=== PATIENT | male | born 1970 | race Two or more races ===

== ENCOUNTER 2019-09-30 09:11 | Emergency (ER) | payer OTHER ==
[~2019-09-30] VITALS: Ht 160 cm; Wt 86.2 kg
[~2019-09-30 09:11] MED LIST: [UNRECOGNIZED DRUG - REMARK]
== END 2019-09-30 11:17 | disposition home or self-care (01) ==
LOC: ER
DX: M79.601 Pain in right arm (principal)

== ENCOUNTER 2021-07-02 10:18 | Emergency (ER) | payer OTHER ==
[~2021-07-02] VITALS: Ht 160 cm; Wt 108.9 kg
== END 2021-07-02 12:42 | disposition home or self-care (01) ==
LOC: ER 10:18
DX: S93.491A Sprain of other ligament of right ankle, initial encounter (principal); X58.XXXA Exposure to other specified factors, initial encounter; Y93.89 Activity, other specified; Y92.89 Other specified places as the place of occurrence of the external cause; Y99.8 Other external cause status

== ENCOUNTER 2021-07-11 08:00 | Outpatient (CLI) | payer OTHER | END 2021-07-11 08:30 | disposition home or self-care (01) | LOC: PPH VACUNA 08:00 | PROVIDERS: ATTEND Emergency Medicine Pediatric Emergency Medicine | DX: Z23 Encounter for immunization (principal) ==

== ENCOUNTER 2021-10-24 08:00 | Outpatient (CLI) | payer OTHER | END 2021-10-24 08:30 | disposition home or self-care (01) | LOC: PPH VACUNA 08:00 | PROVIDERS: ATTEND Emergency Medicine Pediatric Emergency Medicine | DX: Z23 Encounter for immunization (principal) ==

== ENCOUNTER 2022-02-17 07:00 | Emergency (ER) | payer OTHER ==
[~2022-02-17] VITALS: Ht 160 cm; Wt 104.3 kg
== END 2022-02-17 08:43 | disposition home or self-care (01) ==
LOC: ER 07:00
DX: M77.31 Calcaneal spur, right foot (principal); M77.32 Calcaneal spur, left foot

== ENCOUNTER 2022-06-27 10:10 | Outpatient (CLI) | payer OTHER | END 2022-06-27 10:15 | disposition home or self-care (01) | LOC: PPH VACUNA 10:10 | PROVIDERS: ATTEND Emergency Medicine Pediatric Emergency Medicine | DX: Z23 Encounter for immunization (principal) ==

== ENCOUNTER → 2022-09-13 | Outpatient (CLI) | payer OTHER | END | disposition home or self-care (01) | LOC: RAD 14:29 | DX: J10.08 Influenza due to other identified influenza virus with other specified pneumonia (principal) ==

== ENCOUNTER 2023-06-13 | Outpatient (CLI) | payer OTHER | END 2023-06-13 00:15 | disposition home or self-care (01) | LOC: PPH VACUNA | PROVIDERS: ATTEND Emergency Medicine Pediatric Emergency Medicine | DX: Z23 Encounter for immunization (principal) ==

== ENCOUNTER 2023-09-11 09:45 | Outpatient (CLI) | payer OTHER | END 2023-09-11 09:50 | disposition home or self-care (01) | LOC: RAD 09:45 | PROVIDERS: ATTEND General Practice | DX: J10.08 Influenza due to other identified influenza virus with other specified pneumonia (principal) ==

== ENCOUNTER 2024-06-03 13:22 | Outpatient (CLI) | payer OTHER | END 2024-06-03 13:28 | disposition home or self-care (01) | LOC: LAB 13:22 | PROVIDERS: ATTEND Preventive Medicine Occupational Medicine | DX: A49.1 Streptococcal infection, unspecified site (principal); A02.9 Salmonella infection, unspecified; K62.89 Other specified diseases of anus and rectum ==

== ENCOUNTER 2024-06-21 10:44 | Emergency (ER) | payer OTHER ==
[~2024-06-21] VITALS: Ht 162.6 cm; Wt 108.9 kg
[2024-06-21] MEDS ORDERED: MUPIROCIN 15 GM OINT..GM TUBE TOP ONE (11:45)
== END 2024-06-21 14:16 | disposition home or self-care (01) ==
LOC: ER 10:46
DX: R21 Rash and other nonspecific skin eruption (principal); T30.4 Corrosion of unspecified body region, unspecified degree; I10 Essential (primary) hypertension

== ENCOUNTER 2024-07-01 14:03 | Emergency (ER) | payer OTHER ==
[~2024-07-01] VITALS: Ht 162.6 cm; Wt 108.9 kg
[2024-07-01 14:11] VITALS: BP 131/88; O2SAT 95
[2024-07-01] MEDS ORDERED: KETOROLAC TROMETHAMINE 60 MG VIAL IM ONE ×2 (16:30→16:47)
[2024-07-01] MEDS ORDERED: TRIAMCINOLONE ACETONIDE 40 MG/ML VIAL IM ONE (16:30)
[2024-07-01] MEDS ORDERED: TRIAMCINOLONE ACETONIDE 40 MG/ML VIAL ONE (16:47)
[2024-07-01] MEDS ORDERED: DICLOFENAC SODI75 MG PO (17:47)
== END 2024-07-01 18:16 | disposition home or self-care (01) ==
LOC: ER 14:05
DX: M79.605 Pain in left leg (principal); M79.604 Pain in right leg; M77.32 Calcaneal spur, left foot; M77.31 Calcaneal spur, right foot

== ENCOUNTER → 2024-08-11 09:53 | Outpatient (CLI) | payer OTHER ==
[~2024-08-11 09:53] MED LIST changes: +DICLOFENAC SODI75 MG PO
[2024-08-11 10:26] LABS: URINE APPEARANCE Clear; URINE BILIRRUBIN Negative (NEGATIVE); URINE BLOOD Negative; URINE COLOR Yellow; URINE GLUCOSE Negative (NEGATIVE); URINE KETONE Negative (NEGATIVE); URINE LEUKOCYTE Negative; URINE NITRATE Negative; URINE PROTEIN Trace (NEGATIVE); URINE UROBILINOGEN 0.2 E.U./dl
[2024-08-11 10:28] LABS: URINE BACTERIA 6.2 uL (0.0-1933); URINE WBC 2.6 uL (0.0-23.2)
[2024-08-11 10:32] LABS: URINE EPITHELIAL CELLS 0.7 uL (0.0-38.8); URINE RBC 0.9 uL (0.0-20.8)
[2024-08-11 10:44] LABS: HEMATOCRIT 43.6 % (39.0-48.0); HEMOGLOBIN 14.2 g/dL (13-16.00); MEAN CELL VOLUME 81.7 fL (80.0-100.00); MEAN CORPUSCULAR HEMOGLOBIN 26.6 pg (27.00-32.0); MEAN CORPUSCULAR HGB CONC 32.6 g/dl (32.0-36.0); PLATELET COUNT 247 K/uL (150-450); RED BLOOD COUNT 5.34 M/uL (4.00-6.00); RED CELL DISTRIBUTION WIDTH 15.5 % (11.5-14.5)
[2024-08-11 11:36] LABS: ALBUMIN 3.6 gm/dL (3.4-5.0); BILIRUBIN TOTAL 0.57 mg/dL (0.3-1.2); CALCIUM 8.5 mg/dL (8.5-10.1); CHOL HDL RATIO 3.6 (0-5.0); CREATININE SERUM 0.74 mg/dL (0.70-1.30); GFR 111.51; POTASSIUM 4.33 mEq/L (3.5-5.1); PROSTATIC SPECIFIC ANTIGEN 1.72 NG/ML (0.010-4.00); TOTAL PROTEIN 7.6 gm/dL (6.4-8.2)
== END | disposition home or self-care (01) ==
LOC: LAB 09:53
PROVIDERS: ATTEND General Practice
DX: D64.9 Anemia, unspecified (principal); R30.0 Dysuria; R42 Dizziness and giddiness; E78.5 Hyperlipidemia, unspecified; Z12.11 Encounter for screening for malignant neoplasm of colon; N40.0 Benign prostatic hyperplasia without lower urinary tract symptoms

== ENCOUNTER 2024-08-14 09:42 | Outpatient (CLI) | payer OTHER ==
[2024-08-14 10:32] LABS: ob NEGATIVE (NEGATIVE)
== END 2024-08-14 10:14 | disposition home or self-care (01) ==
LOC: LAB 09:42
PROVIDERS: ATTEND General Practice
DX: D64.9 Anemia, unspecified (principal); R30.0 Dysuria; R42 Dizziness and giddiness; E78.5 Hyperlipidemia, unspecified; Z12.11 Encounter for screening for malignant neoplasm of colon; N40.0 Benign prostatic hyperplasia without lower urinary tract symptoms

== ENCOUNTER 2024-08-28 10:39 | Outpatient (CLI) | payer OTHER | END 2024-08-28 10:46 | disposition home or self-care (01) | LOC: RAD 10:39 | DX: J18.9 Pneumonia, unspecified organism (principal) ==

== ENCOUNTER 2024-09-04 11:15 | Outpatient (CLI) | payer OTHER | END 2024-09-04 11:25 | disposition home or self-care (01) | LOC: PPH VACUNA 11:15 | PROVIDERS: ATTEND Emergency Medicine Pediatric Emergency Medicine | DX: Z23 Encounter for immunization (principal) ==

== ENCOUNTER 2024-11-15 13:21 | Emergency (ER) | payer OTHER ==
[~2024-11-15] VITALS: Ht 160 cm; Wt 109.8 kg
[2024-11-15] MEDS ORDERED: MELOXICAM15 MG (14:19)
[2024-11-15] MEDS ORDERED: NIFEDIPINE 10 MG CAPSULE PO ONE ×2 (15:15→15:25)
[2024-11-15] MEDS ORDERED: TRAMADOL HCL 50 MG TABLET PO ONE (15:30)
[2024-11-15] MEDS ORDERED: LOSARTAN POTASS25 MG PO (15:41)
== END 2024-11-15 18:10 | disposition home or self-care (01) ==
LOC: ER 13:23
DX: M25.572 Pain in left ankle and joints of left foot (principal); I10 Essential (primary) hypertension

== ENCOUNTER 2024-11-17 09:29 | Outpatient (CLI) | payer OTHER ==
[~2024-11-17 09:29] MED LIST changes: +LOSARTAN POTASS25 MG PO; +MELOXICAM15 MG
== END 2024-11-17 09:32 | disposition home or self-care (01) ==
LOC: RAD 09:29
DX: R05.9 Cough, unspecified (principal); Z00.00 Encounter for general adult medical examination without abnormal findings

== ENCOUNTER 2024-12-14 09:05 | Inpatient (IN) | payer OTHER ==
[~2024-12-14] VITALS: Ht 162.6 cm; Wt 179.6 kg
--- NOTE | 2024-12-14 09:16 | NUR ---
PACIENTE ALERTA Y ORIENTADO X3 REFIERE ESTAR EN [place] AREA TRABAJO Y QUEDARSE SIN RESPIRARON. SE REALIZA EKG S AVILA PRESENTA A DR. PATRICK. SE MIDE S/V Y SE UBICA.
[2024-12-14] MEDS ORDERED: ONDANSETRON HCL 2 MG/ML VIAL IV ONE (09:45)
[2024-12-14] MEDS ORDERED: FAMOTIDINE/PF 20 MG/2 ML VIAL IV PUSH ONE (10:00)
[2024-12-14] MEDS ORDERED: 0.9 % SODIUM CHLORIDE 1,000 ML IV SCH ×2 (10:00→19:00)
--- NOTE | 2024-12-14 10:26 | NUR ---
SE EDUCA A PACIENTE SOBRE TRATAMIENTO MEDICO EL CUAL REFIERE ENTENDER SE REALIZA [facility] Y [facility] ORDEN MEDICA.
[2024-12-14 10:37] LABS: HEMATOCRIT 45.7 % (39.0-48.0); HEMOGLOBIN 14.2 g/dL (13-16.00); MEAN CELL VOLUME 83.9 fL (80.0-100.00); MEAN CORPUSCULAR HEMOGLOBIN 26.2 pg (27.00-32.0); MEAN CORPUSCULAR HGB CONC 31.2 g/dl (32.0-36.0); PLATELET COUNT 246 K/uL (150-450); RED BLOOD COUNT 5.44 M/uL (4.00-6.00); RED CELL DISTRIBUTION WIDTH 16.1 % (11.5-14.5)
[2024-12-14 11:00] LABS: PH,URINE 6.5 (5.0-8.0); URINE APPEARANCE Clear; URINE BILIRRUBIN Negative (NEGATIVE); URINE BLOOD Negative; URINE COLOR Yellow; URINE GLUCOSE Negative (NEGATIVE); URINE KETONE Negative (NEGATIVE); URINE LEUKOCYTE Negative; URINE NITRATE Negative; URINE PROTEIN Negative (NEGATIVE); URINE UROBILINOGEN 0.2 E.U./dl
[2024-12-14 11:01] LABS: URINE EPITHELIAL CELLS 1.4 uL (0.0-38.8); URINE RBC 2.3 uL (0.0-20.8); URINE WBC 3.4 uL (0.0-23.2)
[2024-12-14 11:04] LABS: URINE CAST 0.29 uL (0.0-1.40)
[2024-12-14 11:36] LABS: ALBUMIN 3.6 gm/dL (3.4-5.0); BILIRUBIN TOTAL 0.65 mg/dL (0.3-1.2); CALCIUM 8.9 mg/dL (8.5-10.1); CREATININE SERUM 0.96 mg/dL (0.70-1.30); GFR 82.25; GLOBULINA 4.1 G/DL (2.4-3.5); POTASSIUM 4.27 mEq/L (3.5-5.1); TOTAL PROTEIN 7.7 gm/dL (6.4-8.2)
[2024-12-14] MEDS ORDERED: METRONIDAZOLE/SODIUM CHLORIDE 500 MG/100 ML PIGGYBACK IV ONE (13:15)
[2024-12-14] MEDS ORDERED: CIPROFLOXACIN IN 5 % DEXTROSE 200 ML IV SCH (18:57)
[2024-12-14] MEDS ORDERED: MORPHINE SULFATE 4 MG/ML CARTRIDGE IV PRN (19:00)
[2024-12-14] MEDS ORDERED: ACETAMINOPHEN 500 MG GEL..CAP PO PRN (19:00)
[2024-12-14] MEDS ORDERED: ONDANSETRON HCL 4 MG in 0.9 % SODIUM CHLORIDE 50 ML IV PRN (19:00)
[2024-12-14 21:18] LABS: INR 1.31; PARTIAL THROMBOPLASTIN TIME 29.2 SECONDS (22.0-34.0)
[2024-12-14 21:25] LABS: PH,URINE 6.5 (5.0-8.0); URINE APPEARANCE Clear; URINE BILIRRUBIN Negative (NEGATIVE); URINE BLOOD Negative; URINE COLOR Yellow; URINE GLUCOSE Negative (NEGATIVE); URINE KETONE Negative (NEGATIVE); URINE LEUKOCYTE Negative; URINE NITRATE Negative; URINE PROTEIN Negative (NEGATIVE); URINE UROBILINOGEN 0.2 E.U./dl
[2024-12-14 21:27] LABS: URINE BACTERIA 7.3 uL (0.0-1933); URINE WBC 2.3 uL (0.0-23.2)
[2024-12-14 21:45] LABS: URINE CAST 0.14 uL (0.0-1.40); URINE EPITHELIAL CELLS 0.9 uL (0.0-38.8); URINE RBC 0.8 uL (0.0-20.8)
[2024-12-14 22:04] VITALS: BP 131/85; O2SAT 97
[2024-12-15] MEDS ORDERED: METRONIDAZOLE/SODIUM CHLORIDE 100 ML IV SCH (01:00)
[2024-12-15 01:14] VITALS: BP 128/86; O2SAT 96
[2024-12-15 08:00] VITALS: BP 147/96; O2SAT 99
[2024-12-15] MEDS ORDERED: LOSARTAN POTASSIUM 25 MG TABLET PO SCH (09:00)
[2024-12-15] MEDS ORDERED: ENOXAPARIN SODIUM 40 MG/0.4 ML SYRINGE SUBCUTANEO SCH (09:00)
[2024-12-15] MEDS ORDERED: FAMOTIDINE/PF 20 MG in 0.9 % SODIUM CHLORIDE 8 ML IV PUSH SCH (09:00)
[2024-12-15 17:23] VITALS: BP 160/85; O2SAT 97
[2024-12-16 02:08] VITALS: BP 125/77; O2SAT 95
[2024-12-16 06:15] LABS: HEMATOCRIT 42.4 % (39.0-48.0); HEMOGLOBIN 13.7 g/dL (13-16.00); MEAN CELL VOLUME 83.6 fL (80.0-100.00); MEAN CORPUSCULAR HGB CONC 32.2 g/dl (32.0-36.0); PLATELET COUNT 228 K/uL (150-450); RED BLOOD COUNT 5.07 M/uL (4.00-6.00)
[2024-12-16 07:24] LABS: BILIRUBIN TOTAL 0.37 mg/dL (0.3-1.2); CALCIUM 8.3 mg/dL (8.5-10.1); CREATININE SERUM 0.81 mg/dL (0.70-1.30); GFR 100.07; GLOBULINA 3.7 G/DL (2.4-3.5); MAGNESIUM 2.5 mg/dL (1.8-2.4); PHOSPHOROUS 2.6 mg/dL (2.5-4.9); POTASSIUM 4.61 mEq/L (3.5-5.1); TOTAL PROTEIN 6.7 gm/dL (6.4-8.2)
[2024-12-16 07:28] LABS: C-REACTIVE PROTEIN 5.16 MG/DL (0.00-0.29)
[2024-12-16 08:51] VITALS: BP 147/76; O2SAT 99
== END 2024-12-16 15:19 | disposition home or self-care (01) | DRG 392 ==
LOC: ER 09:05 → MEDI 19:28
PROVIDERS: Emergency Medicine; General Practice; Internal Medicine Infectious Disease; ADMIT Internal Medicine; ATTEND Internal Medicine
PROC: BW21YZZ Computerized Tomography (CT Scan) of Abdomen and Pelvis using Other Contrast (ICD-10-PCS; principal; 2024-12-14)
DX: A09 Infectious gastroenteritis and colitis, unspecified (principal); A05.9 Bacterial foodborne intoxication, unspecified; I10 Essential (primary) hypertension

== ENCOUNTER 2025-05-18 13:39 | Outpatient (CLI) | payer OTHER | END 2025-05-18 13:48 | disposition home or self-care (01) | LOC: SONOGRAMA 13:39 | PROVIDERS: ATTEND Physical Medicine & Rehabilitation | DX: M65.872 Other synovitis and tenosynovitis, left ankle and foot (principal); M72.2 Plantar fascial fibromatosis ==

== ENCOUNTER 2025-05-27 06:56 | Emergency (ER) | payer OTHER ==
[~2025-05-27] VITALS: Ht 162.6 cm; Wt 108.9 kg
[2025-05-27 07:29] VITALS: BP 132/89; O2SAT 96
[2025-05-27] MEDS ORDERED: METHYLPREDNISOLONE SOD SUCC 125 MG VIAL IV ONE (08:30)
[2025-05-27] MEDS ORDERED: LEVALBUTEROL HCL 0.63 MG/3 ML SOLUTION IH SCH (08:30)
[2025-05-27 09:03] LABS: BASO % 0.6 % (0.1-1.2); EOS # 0.08 (0.04-0.54); EOS % 1.2 % (0.7-7.0); LYMPH # 2.62 (1.18-3.74); LYMPH % 39.1 % (19.3-53.1); MEAN PLATELET VOLUME 10.90 fl (9.4-12.4); MONO # 1.15 (0.24-0.82); NEUT # 2.79 (1.56-6.13); NEUT % 41.6 % (34.0-71.1); RED CELL DISTRIBUTION WIDTH 14.7 % (11.6-14.4)
[2025-05-27 09:12] LABS: MONO % 17.2 % (4.7-12.5)
[2025-05-27 10:14] LABS: COVID-19 AG NEGATIVE (NEGATIVE)
== END 2025-05-27 11:26 | disposition home or self-care (01) ==
LOC: ER 07:07
PROVIDERS: Emergency Medicine
DX: J45.909 Unspecified asthma, uncomplicated (principal); J10.1 Influenza due to other identified influenza virus with other respiratory manifestations; Z20.822 Contact with and (suspected) exposure to COVID-19; I10 Essential (primary) hypertension

== ENCOUNTER 2025-08-06 09:28 | Outpatient (CLI) | payer OTHER | END 2025-08-06 09:38 | disposition home or self-care (01) | LOC: PPH VACUNA 09:28 | PROVIDERS: ATTEND Emergency Medicine Pediatric Emergency Medicine | DX: Z23 Encounter for immunization (principal) ==